=== PATIENT | male | born 2000 | race Caucasian/White ===

== ENCOUNTER 2021-02-05 22:32 | Emergency (ER) | payer OTHER ==
[~2021-02-05] VITALS: Ht 182.9 cm; Wt 72.7 kg
[2021-02-05 22:37] VITALS: BP 129/73; TEMP 98.7
[2021-02-05 22:57] LABS: BASO % 0.4 % (0.0-2.0); EOS % 0.4 % (0-4.0); GRAN # 7.1 (1.4-6.5); GRAN % 71.9 % (42.2-75.2); HEMATOCRIT 46.9 % (42.0-52.0); HEMOGLOBIN 15.7 g/dl (13.5-18.0); LYMPH # 1.9 (1.2-3.4); LYMPH % 19.3 % (20.0-51.0); MEAN CELL VOLUME 88 fl (80.0-100.0); MEAN CORPUSCULAR HEMOGLOBIN 29 pg (27.0-31.0); MEAN CORPUSCULAR HGB CONC 34 g/dl (33.0-37.0); MEAN PLATELET VOLUME 9.2 fl (7.4-10.4); MONO # 0.7 (0.1-0.6); MONO % 7.5 % (1.7-9.3); PLATELET COUNT 294 K/mm3 (130-400); RED BLOOD COUNT 5.36 M/mm3 (4.20-5.60); REDCELL DISTRIBUTION WIDTH-CV 12.2 % (11.5-14.5)
[2021-02-05 23:07] LABS: ALBUMIN 4.4 gm/dL (3.5-5.0); BILIRUBIN,TOTAL 0.5 mg/dL (0.0-1.0); CALCIUM 9.3 mg/dL (8.4-10.2); CREATININE, serum 0.83 (0.66-1.25); POTASSIUM 4.2 mmol/L (3.4-5.0); TOTAL PROTEIN 7.7 gm/dL (6.4-8.2)
[2021-02-05] MEDS ORDERED: NORCO 325 MG-51 TAB (23:51)
[2021-02-05] MEDS ORDERED: MEDROL 4MG DOSPA4 MG PO (23:51)
[2021-02-05] MEDS ORDERED: AMOXICILLIN 25250 MG PO (23:51)
[2021-02-05 23:56] VITALS: PULSE 60
== END 2021-02-05 23:56 | disposition home or self-care (01) ==
LOC: COL.ER 22:32
PROVIDERS: Nurse Practitioner Primary Care
DX: L02.01 Cutaneous abscess of face (principal)
CPT/HCPCS: J1885; Q9967